=== PATIENT | female | born 1995 | race Caucasian/White ===

== ENCOUNTER 2017-04-15 17:41 | Emergency (ER) | payer BC ==
[2017-04-15] MEDS ORDERED: Ondansetron ODT TAB* 4 MG PO ONE ×2 (19:43→20:40)
[2017-04-15 19:47] VITALS: BP 148/83
--- NOTE | 2017-04-15 19:47 | UC ---
UC General HPI - HPI Summary HPI Summary: Patient has had multiple episodes of diarrhea starting yesterday and today. she woke up with a headache and feeling lightheaded. she has not drank or eaten much due to nausea. - History of Current Complaint Stated Complaint: FLU SYMPTOMS Time Seen by Provider: 04/15/17 19:39 Hx Obtained From: Patient Onset/Duration: Sudden Onset, Lasting Days - 2 Timing: Constant Onset Severity: Mild Current Severity: Moderate Associated Signs & Symptoms: Positive: Diarrhea, Decreased Oral Intake, Headache , Nausea - Allergy/Home Medications Allergies/Adverse Reactions: Allergies Allergy/AdvReac Type Severity Reaction Status Date / Time Latex Allergy Intermediate Rash Verified 04/15/17 19:47 metals Allergy Intermediate Rash Uncoded 04/15/17 19:47 Home Medications: Home Medications Albuterol HFA INHALER* [Ventolin HFA Inhaler*] 2 puff INH Q4H PRN 04/15/17 [ History Confirmed 04/15/17] Norgestimate-Ethinyl Estradiol [Sprintec 28 0.25-35 mg-Mcg] 1 tab PO BEDTIME 08/01 [History Confirmed 04/15/17] Venlafaxine TAB (NF) [Effexor TAB (NF)] 150 mg PO DAILY 04/15/17 [History Confirmed 04/15/17] PMH/Surg Hx/FS Hx/Imm Hx Previously Healthy: Yes - Family History Known Family History: Negative: Cardiac Disease, Hypertension Review of Systems Constitutional: Negative Skin: Negative Eyes: Negative ENT: Negative Respiratory: Negative Cardiovascular: Negative Gastrointestinal: Diarrhea, Nausea Motor: Negative Neurovascular: Negative Musculoskeletal: Negative Neurological: Headache Psychological: Negative Is Patient Immunocompromised?: No All Other Systems Reviewed And Are Negative: Yes Physical Exam Triage Information Reviewed: Yes Appearance: No Pain Distress, Well-Nourished, Ill-Appearing Vital Signs Reviewed: Yes Eye Exam: Normal ENT: Positive: Hearing grossly normal, Pharynx normal, TMs normal Dental Exam: Normal Neck exam: Normal Neck: Positive: Supple, Nontender, No Lymphadenopathy Respiratory Exam: Normal Respiratory: Positive: Chest non-tender, Lungs clear, Normal breath sounds Cardiovascular Exam: Normal Cardiovascular: Positive: RRR, No Murmur, Pulses Normal Abdomen Description: Positive: Nontender, No Organomegaly, Soft, CVA Tenderness (R) - neg, CVA Tenderness (L) - neg Bowel Sounds: Positive: Hyperactive Musculoskeletal Exam: Normal Musculoskeletal: Positive: Strength Intact, ROM Intact, No Edema Neurological Exam: Normal Neurological: Positive: Alert, Muscle Tone Normal Psychological Exam: Normal Skin Exam: Normal Course/Dx - Course Course Of Treatment: hx obtained, exam performed ,meds reviewed, zofran given , flu swab obtained, oral hydrated attempted - Differential Dx - Multi-Symptom Provider Diagnoses: headache. diarrhea Discharge - Discharge Plan Condition: Stable Disposition: HOME Patient Education Materials: Dehydration (ED) Additional Instructions: 1. I recommend increasing your fluid intake and get plenty of rest. 2. Ibuprofen or tylenol for your fever and your stomach allows. 3. Eat a bland diet as tolerated and follow up with any worsening symtpoms 4. Your flud swab was negative.
== END 2017-04-15 20:52 | disposition home or self-care (01) ==
LOC: UCCORT 17:41
DX: R19.7 Diarrhea, unspecified (principal); R51 Headache; Z91.040 Latex allergy status; Z91.048 Other nonmedicinal substance allergy status
CPT/HCPCS: 87502; 99202; A9270-GY; G0463